=== PATIENT | female | born 1990 | race Caucasian/White ===

== ENCOUNTER 2022-06-01 10:36 | Inpatient (IN) | payer OTHER ==
[2022-06-01 12:04] VITALS: BMI 37.0
[2022-06-01] MEDS ORDERED: BENZOCAINE/MENTHOL (CHLORASEPTIC ) LOZENGE MM PRN (12:11)
[2022-06-01] MEDS ORDERED: MAGNESIUM HYDROX 2400MG/30ML ORAL SUSPENSION 30 ML CUP PO PRN (12:11)
[2022-06-01] MEDS ORDERED: NICOTINE POLACRILEX 4 MG GUM BUC PRN (12:11)
[2022-06-01] MEDS ORDERED: guaiFENesin 600 MG TABLET.ER (FP) PO PRN (12:11)
[2022-06-01] MEDS ORDERED: chlordiazePOXIDE HCL 25 MG CAPSULE PO ONE (12:11)
[2022-06-01] MEDS ORDERED: NALOXONE HCL (KLOXXADO) 8 MG SPRAY NS PRN (12:11)
[2022-06-01] MEDS ORDERED: ACETAMINOPHEN 325 MG TABLET (FP) PO PRN (12:11)
[2022-06-01] MEDS ORDERED: NALOXONE HCL 0.4 MG/ML VIAL IM PRN (12:11)
[2022-06-01] MEDS ORDERED: POLYETHYLENE GLYCOL (HEALTHYLAX) 3350 17 GM PACKET PO PRN (12:11)
[2022-06-01] MEDS ORDERED: LOPERAMIDE HCL 2 MG CAPSULE PO PRN (12:11)
[2022-06-01] MEDS ORDERED: ONDANSETRON *ODT* 4 MG TABLET SL PRN (12:11)
[2022-06-01] MEDS ORDERED: DICYCLOMINE HCL 10 MG CAPSULE PO PRN (12:11)
[2022-06-01] MEDS: GABAPENTIN 300 MG CAPSULE PO SCH ×2 (13:03→22:05)
[2022-06-01] MEDS: PANTOPRAZOLE 20 MG TABLET PO SCH (13:03)
[2022-06-01] MEDS: BISMUTH SUBSALICYLATE 524 MG/30 ML PO PRN (13:13)
[2022-06-01] MEDS: NICOTINE 10 MG CARTRIDGE (INHALER) IH PRN (14:25)
[2022-06-01] MEDS: chlordiazePOXIDE HCL 25 MG CAPSULE PO SCH ×2 (17:01→22:04)
[2022-06-01] MEDS ORDERED: QUEtiapine FUMARATE 200 MG TABLET PO SCH (22:00)
[2022-06-01] MEDS: metFORMIN HCL 500 MG TABLET (FP) PO SCH (22:06)
[2022-06-01] MEDS: MELATONIN 5 MG TABLETS PO SCH (22:07)
[2022-06-01] MEDS: THIAMINE HCL 100 MG TABLET (FP) PO SCH (22:07)
[2022-06-01] MEDS: IBUPROFEN 400 MG TABLET (FP) PO PRN (22:10)
[2022-06-01] MEDS: QUEtiapine FUMARATE 100 MG TABLET (FP) PO SCH (22:43)
[2022-06-02] MEDS: chlordiazePOXIDE HCL 25 MG CAPSULE PO SCH ×4 (05:38→22:13)
[2022-06-02] MEDS: GABAPENTIN 300 MG CAPSULE PO SCH ×3 (05:39→22:12)
[2022-06-02] MEDS: IBUPROFEN 400 MG TABLET (FP) PO PRN (05:47)
[2022-06-02] MEDS ORDERED: methaDONE HCL 10 MG TABLET (FOR DETOX USE ONLY) PO ONE (06:00)
[2022-06-02] MEDS: PRENATAL VITAMINS W/ FOLIC ACID TABLET (FP) PO SCH (10:14)
[2022-06-02] MEDS: metFORMIN HCL 500 MG TABLET (FP) PO SCH ×2 (10:15→22:11)
[2022-06-02] MEDS: PANTOPRAZOLE 20 MG TABLET PO SCH (10:15)
[2022-06-02] MEDS: chlordiazePOXIDE HCL 25 MG CAPSULE PO PRN ×2 (14:18→20:41)
[2022-06-02] MEDS: THIAMINE HCL 100 MG TABLET (FP) PO SCH (22:10)
[2022-06-02] MEDS: MELATONIN 5 MG TABLETS PO SCH (22:11)
[2022-06-02] MEDS: QUEtiapine FUMARATE 100 MG TABLET (FP) PO SCH (22:11)
[2022-06-03] MEDS: chlordiazePOXIDE HCL 25 MG CAPSULE PO SCH ×4 (05:24→22:12)
[2022-06-03] MEDS: GABAPENTIN 300 MG CAPSULE PO SCH ×3 (05:24→22:12)
[2022-06-03] MEDS: IBUPROFEN 400 MG TABLET (FP) PO PRN (05:26)
[2022-06-03] MEDS: metFORMIN HCL 500 MG TABLET (FP) PO SCH ×2 (06:55→17:00)
[2022-06-03] MEDS ORDERED: methaDONE HCL 10 MG TABLET PO SCH (08:30)
[2022-06-03] MEDS: PANTOPRAZOLE 20 MG TABLET PO SCH (10:23)
[2022-06-03] MEDS: PRENATAL VITAMINS W/ FOLIC ACID TABLET (FP) PO SCH (10:23)
[2022-06-03] MEDS: chlordiazePOXIDE HCL 25 MG CAPSULE PO PRN (20:10)
[2022-06-03] MEDS: hydrOXYzine PAMOATE 25 MG CAPSULE (FP) PO PRN (20:11)
[2022-06-03] MEDS: MELATONIN 5 MG TABLETS PO SCH (22:11)
[2022-06-03] MEDS: THIAMINE HCL 100 MG TABLET (FP) PO SCH (22:12)
[2022-06-03] MEDS: QUEtiapine FUMARATE 300 MG TABLET PO SCH (22:12)
[2022-06-04] MEDS: chlordiazePOXIDE HCL 10 MG CAPSULE PO PRN ×2 (02:52→18:19)
[2022-06-04] MEDS: chlordiazePOXIDE HCL 10 MG CAPSULE PO SCH ×4 (05:31→22:11)
[2022-06-04] MEDS: GABAPENTIN 300 MG CAPSULE PO SCH ×3 (05:31→22:11)
[2022-06-04] MEDS: IBUPROFEN 400 MG TABLET (FP) PO PRN ×2 (05:36→22:13)
[2022-06-04] MEDS: metFORMIN HCL 500 MG TABLET (FP) PO SCH ×2 (06:23→17:17)
[2022-06-04] MEDS: PANTOPRAZOLE 20 MG TABLET PO SCH (10:15)
[2022-06-04] MEDS: QUEtiapine FUMARATE 100 MG TABLET (FP) PO SCH (10:15)
[2022-06-04] MEDS: PRENATAL VITAMINS W/ FOLIC ACID TABLET (FP) PO SCH (10:15)
[2022-06-04] MEDS: hydrOXYzine PAMOATE 25 MG CAPSULE (FP) PO PRN (12:14)
[2022-06-04] MEDS: THIAMINE HCL 100 MG TABLET (FP) PO SCH (22:11)
[2022-06-04] MEDS: MELATONIN 5 MG TABLETS PO SCH (22:11)
[2022-06-04] MEDS: QUEtiapine FUMARATE 300 MG TABLET PO SCH (22:11)
[2022-06-05] MEDS: IBUPROFEN 400 MG TABLET (FP) PO PRN (05:50)
[2022-06-05] MEDS: GABAPENTIN 300 MG CAPSULE PO SCH ×3 (05:50→22:44)
[2022-06-05] MEDS: chlordiazePOXIDE HCL 10 MG CAPSULE PO SCH ×2 (05:50→17:08)
[2022-06-05] MEDS: metFORMIN HCL 500 MG TABLET (FP) PO SCH ×2 (06:11→16:48)
[2022-06-05] MEDS: QUEtiapine FUMARATE 100 MG TABLET (FP) PO SCH (10:03)
[2022-06-05] MEDS: hydrOXYzine PAMOATE 25 MG CAPSULE (FP) PO PRN (10:03)
[2022-06-05] MEDS: PRENATAL VITAMINS W/ FOLIC ACID TABLET (FP) PO SCH (10:03)
[2022-06-05] MEDS: PANTOPRAZOLE 20 MG TABLET PO SCH (10:03)
[2022-06-05] MEDS ORDERED: hydrOXYzine PAMOATE 25 MG CAPSULE (FP) PO ONE (14:30)
[2022-06-05] MEDS: METHOCARBAMOL 750 MG TABLET PO SCH ×2 (15:00→22:44)
[2022-06-05] MEDS ORDERED: ALBUTEROL SO4 HFA INHALER IH PRN (15:56)
[2022-06-05] MEDS: MAG HYDROX/AL HYDROX/SIMETH 30 ML UNIT-DOSE CUP PO PRN ×2 (17:08→23:00)
[2022-06-05] MEDS: BISMUTH SUBSALICYLATE 524 MG/30 ML PO PRN (20:34)
[2022-06-05] MEDS: MELATONIN 5 MG TABLETS PO SCH (22:44)
[2022-06-05] MEDS: QUEtiapine FUMARATE 300 MG TABLET PO SCH (22:44)
[2022-06-05] MEDS: THIAMINE HCL 100 MG TABLET (FP) PO SCH (22:44)
[2022-06-05] MEDS: NICOTINE 10 MG CARTRIDGE (INHALER) IH PRN (23:00)
[2022-06-06] MEDS ORDERED: chlordiazePOXIDE HCL 10 MG CAPSULE PO ONE (05:00)
[2022-06-06] MEDS: METHOCARBAMOL 750 MG TABLET PO SCH (05:20)
[2022-06-06] MEDS: GABAPENTIN 300 MG CAPSULE PO SCH (05:20)
[2022-06-06] MEDS: metFORMIN HCL 500 MG TABLET (FP) PO SCH (06:20)
[2022-06-06 06:46] VITALS: PULSE 83
[2022-06-06 08:33] VITALS: BP 103/66; RESP 16; TEMP 97.9
[2022-06-06] MEDS: PRENATAL VITAMINS W/ FOLIC ACID TABLET (FP) PO SCH (09:20)
[2022-06-06] MEDS: QUEtiapine FUMARATE 100 MG TABLET (FP) PO SCH (09:20)
[2022-06-06] MEDS: PANTOPRAZOLE 20 MG TABLET PO SCH (09:20)
== END 2022-06-06 09:50 | disposition home or self-care (01) | DRG 773 ==
LOC: YASAS 10:36 → Y3N 12:22
PROVIDERS: ADMIT Allergy & Immunology; ATTEND Surgery
PROC: HZ2ZZZZ Detoxification Services for Substance Abuse Treatment (ICD-10-PCS; principal; 2022-06-01)
DX: F11.23 Opioid dependence with withdrawal (principal); F10.230 Alcohol dependence with withdrawal, uncomplicated; F14.20 Cocaine dependence, uncomplicated; F13.20 Sedative, hypnotic or anxiolytic dependence, uncomplicated; F17.210 Nicotine dependence, cigarettes, uncomplicated; F31.9 Bipolar disorder, unspecified; F19.24 Other psychoactive substance dependence with psychoactive substance-induced mood disorder; G62.9 Polyneuropathy, unspecified; F43.10 Post-traumatic stress disorder, unspecified; H53.143 Visual discomfort, bilateral; E11.9 Type 2 diabetes mellitus without complications; Z79.84 Long term (current) use of oral hypoglycemic drugs
CPT/HCPCS: 82962; 87811; 93005; 93010; C9803-CS; U0003; U0005

== ENCOUNTER 2023-08-15 08:39 | Inpatient (IN) | payer OTHER ==
[2023-08-15 09:30] VITALS: BMI 36.3
[2023-08-15] MEDS ORDERED: BENZOCAINE/MENTHOL (CHLORASEPTIC ) LOZENGE MM PRN (10:19)
[2023-08-15] MEDS ORDERED: NALOXONE HCL 0.4 MG/ML VIAL IM PRN (10:19)
[2023-08-15] MEDS ORDERED: POLYETHYLENE GLYCOL (HEALTHYLAX) 3350 17 GM PACKET PO PRN (10:19)
[2023-08-15] MEDS ORDERED: NALOXONE (NARCAN) HCL 4 MG/0.1 ML SPRAY NS PRN (10:19)
[2023-08-15] MEDS ORDERED: BENZONATATE 200 MG CAPSULE PO PRN (10:19)
[2023-08-15] MEDS ORDERED: LOPERAMIDE HCL 2 MG CAPSULE PO PRN (10:19)
[2023-08-15] MEDS ORDERED: MAGNESIUM HYDROX 2400MG/30ML ORAL SUSPENSION 30 ML CUP PO PRN (10:19)
[2023-08-15] MEDS ORDERED: MAG HYDROX/AL HYDROX/SIMETH 30 ML UNIT-DOSE CUP PO PRN (10:19)
[2023-08-15] MEDS ORDERED: guaiFENesin 600 MG TABLET.ER (FP) PO PRN (10:19)
[2023-08-15] MEDS ORDERED: methaDONE HCL 10 MG TABLET PO ONE ×2 (10:25→12:05)
[2023-08-15] MEDS ORDERED: chlordiazePOXIDE HCL 25 MG CAPSULE PO SCH (11:00)
[2023-08-15] MEDS ORDERED: PRENATAL VITAMINS W/ FOLIC ACID TABLET (FP) PO ONE (11:49)
[2023-08-15] MEDS: PRENATAL VITAMINS W/ FOLIC ACID TABLET (FP) PO SCH (11:52)
[2023-08-15] MEDS: chlordiazePOXIDE HCL 25 MG CAPSULE PO SCH (13:18)
[2023-08-15] MEDS: ACAMPROSATE CALCIUM 333 MG TABLET.DR PO SCH (13:18)
[2023-08-15] MEDS: ONDANSETRON *ODT* 4 MG TABLET SL PRN (13:22)
[2023-08-15] MEDS: chlordiazePOXIDE HCL 25 MG CAPSULE PO PRN (20:19)
[2023-08-15] MEDS: IBUPROFEN 600 MG TABLET (FP) PO PRN (20:20)
[2023-08-15] MEDS: BUDESONIDE/FORMETEROL FUMARATE 160/4.5 mcg INHALER IH SCH (22:59)
[2023-08-15] MEDS: THIAMINE 100 MG TABLET PO SCH (23:00)
[2023-08-15] MEDS: MELATONIN 5 MG TABLETS PO SCH (23:00)
[2023-08-15] MEDS: QUEtiapine FUMARATE 200 MG TABLET PO SCH (23:00)
[2023-08-15] MEDS: NICOTINE POLACRILEX 4 MG GUM BUC PRN (23:01)
[2023-08-16] MEDS ORDERED: methaDONE HCL 10 MG TABLET PO SCH (06:00)
[2023-08-16] MEDS: ALBUTEROL SO4 HFA INHALER IH PRN (06:50)
[2023-08-16] MEDS: TRIMETHOBENZAMIDE HCL 200MG/2ML INJ IM ONE (12:46)
[2023-08-16] MEDS: METHOCARBAMOL 500 MG TABLET PO PRN (22:12)
[2023-08-16] MEDS: hydrOXYzine PAMOATE 25 MG CAPSULE (FP) PO PRN (22:12)
[2023-08-17] MEDS ORDERED: methaDONE HCL 40 MG DISPERSABLE TABLET PO SCH (06:00)
[2023-08-17] MEDS: DICYCLOMINE HCL 10 MG CAPSULE PO PRN (06:01)
[2023-08-17] MEDS: BISMUTH SUBSALICYLATE 262 MG/15 ML BTL PO PRN (06:01)
[2023-08-17] MEDS: chlordiazePOXIDE HCL 25 MG CAPSULE PO SCH (07:34)
[2023-08-17] MEDS: TRIMETHOBENZAMIDE HCL 200MG/2ML INJ IM PRN (09:31)
[2023-08-17] MEDS: PANTOPRAZOLE 40 MG TABLET PO SCH (11:05)
[2023-08-17] MEDS: LORazepam 2 MG TABLET PO SCH (22:08)
[2023-08-17] MEDS: ERYTHROMYCIN BASE 250 MG TAB PO SCH (22:10)
[2023-08-18] MEDS ORDERED: chlordiazePOXIDE HCL 10 MG CAPSULE PO PRN
[2023-08-18] MEDS ORDERED: chlordiazePOXIDE HCL 10 MG CAPSULE PO SCH (05:00)
[2023-08-18] MEDS: LORazepam 1 MG TABLET PO SCH (05:57)
[2023-08-18] MEDS: SUCRALFATE 1 GM TABLET (FP) PO SCH (07:21)
[2023-08-18] MEDS ORDERED: methaDONE HCL 40 MG DISPERSABLE TABLET PO ONE (08:29)
[2023-08-18 11:48] LABS: HEMATOCRIT 40.4 % (32.4-45.2); HEMOGLOBIN 13.5 GM/dL (10.7-15.3); MCH 29.9 pg (25.7-33.7); MCHC 33.4 g/dl (32.0-36.0); MEAN CELL VOLUME 89.6 fl (80-96); MEAN PLT VOLUME 7.8 fl (7.5-11.1); PLATELET COUNT 227 10^3/uL (134-434); RBC 4.51 M/mm3 (3.60-5.2); RDW 13.9 % (11.6-15.6); WHITE BLOOD COUNT 5.2 K/mm3 (4.0-10.0)
[2023-08-18 11:50] LABS: CHLORIDE 100 mmol/L (98-107); POTASSIUM 3.7 mmol/L (3.5-5.1); SODIUM 136 mmol/L (136-145)
[2023-08-18 11:52] LABS: BLOOD UREA NITROGEN 10.2 mg/dL (7-18); CALCIUM 8.6 mg/dL (8.5-10.1)
[2023-08-18 11:53] LABS: ALBUMIN 3.4 g/dl (3.4-5.0); ANION GAP 5 mmol/L (4-13); CO2 30 mmol/L (21-32); GLUCOSE,RANDOM 99 mg/dL (74-106)
[2023-08-18 11:54] LABS: CREATININE 0.9 mg/dL (0.55-1.3); SGPT/ALT 59 U/L (13-61)
[2023-08-18 11:56] LABS: SGOT/AST 56 U/L (15-37)
[2023-08-18 11:57] LABS: ALK PHOS 115 U/L (45-117); BILIRUBIN,TOTAL 0.5 mg/dL (0.2-1); TOT PROT 7.3 g/dl (6.4-8.2)
[2023-08-18] MEDS: LORazepam 1 MG TABLET PO PRN (14:17)
[2023-08-18] MEDS: ACETAMINOPHEN 325 MG TABLET (FP) PO PRN (17:14)
[2023-08-18] MEDS: IBUPROFEN 400 MG TABLET (FP) PO PRN (21:59)
[2023-08-19] MEDS ORDERED: chlordiazePOXIDE HCL 10 MG CAPSULE PO SCH (05:00)
[2023-08-19] MEDS: LORazepam 0.5 MG TABLET PO SCH (05:37)
[2023-08-19] MEDS ORDERED: methaDONE HCL 10 MG TABLET PO SCH (06:00)
[2023-08-19] MEDS: methaDONE HCL 40 MG DISPERSABLE TABLET PO ONE (09:30)
[2023-08-19] MEDS: LORazepam 0.5 MG TABLET PO PRN (13:34)
[2023-08-19] MEDS: GABAPENTIN 100 MG CAPSULE PO SCH (13:35)
[2023-08-19] MEDS: ACETAMINOPHEN 325 MG TABLET (FP) PO PRN (15:45)
[2023-08-19] MEDS ORDERED: ACETAMINOPHEN 325 MG TABLET (FP) PO PRN (15:46)
[2023-08-20] MEDS ORDERED: chlordiazePOXIDE HCL 10 MG CAPSULE PO ONE (05:00)
[2023-08-20] MEDS: LORazepam 0.5 MG TABLET PO ONE (05:51)
[2023-08-20 07:05] VITALS: BP 132/58; PULSE 79; RESP 16; TEMP 97.8
[2023-08-20] MEDS ORDERED: methaDONE HCL 10 MG TABLET PO ONE (09:00)
== END 2023-08-20 11:02 | disposition home or self-care (01) | DRG 773 ==
LOC: YASAS 08:39 → Y6N 10:39
PROVIDERS: ADMIT Allergy & Immunology; ATTEND Surgery
PROC: HZ2ZZZZ Detoxification Services for Substance Abuse Treatment (ICD-10-PCS; principal; 2023-08-15)
DX: F10.230 Alcohol dependence with withdrawal, uncomplicated (principal); F11.20 Opioid dependence, uncomplicated; F14.20 Cocaine dependence, uncomplicated; F13.20 Sedative, hypnotic or anxiolytic dependence, uncomplicated; F17.210 Nicotine dependence, cigarettes, uncomplicated; F20.9 Schizophrenia, unspecified; F31.9 Bipolar disorder, unspecified; F19.24 Other psychoactive substance dependence with psychoactive substance-induced mood disorder; F41.9 Anxiety disorder, unspecified; H53.143 Visual discomfort, bilateral; K21.9 Gastro-esophageal reflux disease without esophagitis; R73.03 Prediabetes; G62.9 Polyneuropathy, unspecified
CPT/HCPCS: 36415; 80053; 80305; 80307; 81025; 82140; 85027; 86780; 93005; 93010; Q0162

== ENCOUNTER 2024-10-22 11:49 | Inpatient (IN) | payer OTHER ==
[2024-10-22] MEDS ORDERED: POLYETHYLENE GLYCOL (HEALTHYLAX) 3350 17 GM PACKET PO PRN (13:07)
[2024-10-22] MEDS ORDERED: guaiFENesin 600 MG TABLET.ER (FP) PO PRN (13:07)
[2024-10-22] MEDS ORDERED: IBUPROFEN 400 MG TABLET (FP) PO PRN (13:07)
[2024-10-22] MEDS ORDERED: NALOXONE (NARCAN) HCL 4 MG/0.1 ML SPRAY NS PRN (13:07)
[2024-10-22] MEDS ORDERED: MAGNESIUM HYDROX 2400MG/30ML ORAL SUSPENSION 30 ML CUP PO PRN (13:07)
[2024-10-22] MEDS ORDERED: DICYCLOMINE HCL 10 MG CAPSULE PO PRN (13:07)
[2024-10-22] MEDS ORDERED: BENZONATATE 200 MG CAPSULE PO PRN (13:07)
[2024-10-22 13:09] VITALS: BMI 38.4
[2024-10-22] MEDS ORDERED: ALBUTEROL SO4 HFA INHALER IH PRN (13:10)
[2024-10-22] MEDS ORDERED: ACAMPROSATE CALCIUM 333 MG TABLET.DR PO SCH ×2 (14:00→22:00)
[2024-10-22] MEDS ORDERED: ONDANSETRON *ODT* 4 MG TABLET ONE (14:16)
[2024-10-22] MEDS ORDERED: MAG HYDROX/AL HYDROX/SIMETH 30 ML UNIT-DOSE CUP ONE (14:16)
[2024-10-22] MEDS ORDERED: NICOTINE 7 MG/24 HOURS TOPICAL PATCH TD ONE (14:16)
[2024-10-22] MEDS ORDERED: GABAPENTIN 100 MG CAPSULE ONE (14:16)
[2024-10-22] MEDS: PRENATAL VITAMINS W/ FOLIC ACID TABLET (FP) PO SCH (14:19)
[2024-10-22] MEDS: ONDANSETRON *ODT* 4 MG TABLET SL PRN (14:20)
[2024-10-22] MEDS: NICOTINE 7 MG/24 HOURS TOPICAL PATCH TD SCH (14:21)
[2024-10-22] MEDS: GABAPENTIN 100 MG CAPSULE PO SCH (14:24)
[2024-10-22] MEDS: ACAMPROSATE CALCIUM 333 MG TABLET.DR PO SCH (18:04)
[2024-10-22] MEDS: levETIRAcetam 500 MG TABLET (FP) PO SCH (18:04)
[2024-10-22] MEDS: hydrOXYzine PAMOATE 25 MG CAPSULE (FP) PO PRN (18:11)
[2024-10-22] MEDS: BISMUTH SUBSALICYLATE 524 MG/30 ML PO PRN (18:33)
[2024-10-22] MEDS: MAG HYDROX/AL HYDROX/SIMETH 30 ML UNIT-DOSE CUP PO PRN (18:33)
[2024-10-22] MEDS: MELATONIN 5 MG TABLETS PO SCH (22:30)
[2024-10-22] MEDS: THIAMINE 100 MG TABLET PO SCH (22:30)
[2024-10-22] MEDS: BUDESONIDE/FORMETEROL FUMARATE 80/4.5 mcg INHALER IH SCH (22:31)
[2024-10-23] MEDS: METHOCARBAMOL 500 MG TABLET PO PRN (06:23)
[2024-10-23] MEDS: LOPERAMIDE HCL 2 MG CAPSULE PO PRN (08:29)
[2024-10-23 10:27] LABS: GLUCOSE,RANDOM 112.0 mg/dL (74-106); TOT PROT 7.8 g/dl (6.4-8.2)
[2024-10-23 10:28] LABS: CO2 22.0 mmol/L (21-32)
[2024-10-23 10:30] LABS: ALK PHOS 94.0 U/L (40-150)
[2024-10-23 10:32] LABS: SGOT/AST 38.0 U/L (5-34); SGPT/ALT 27.0 U/L (0-55)
[2024-10-23 10:33] LABS: CREATININE 0.94 mg/dL (0.55-1.3)
[2024-10-23 10:34] LABS: MCHC 32.4 g/dl (32.2-35.5); MEAN CELL VOLUME 91.3 fl (79.4-94.8); MEAN PLT VOLUME 10.2 fl (9.4-12.3); RDW 13.0 % (12.1-16.8)
[2024-10-23 14:59] LABS: URINE APPEARANCE CLEAR; URINE BILIRUBIN NEGATIVE (NEGATIVE); URINE COLOR YELLOW; URINE GLUCOSE (UA) NEGATIVE (NEGATIVE); URINE KETONE NEGATIVE (NEGATIVE); URINE LEUK ESTERASE NEGATIVE (NEGATIVE); URINE NITRITE NEGATIVE (NEGATIVE); URINE PROTEIN NEGATIVE (NEGATIVE); URINE UROBILINOGEN 0.2 mg/dL (0.2-1.0)
[2024-10-23] MEDS: IBUPROFEN 600 MG TABLET (FP) PO PRN (15:15)
[2024-10-23] MEDS: ACETAMINOPHEN 325 MG TABLET (FP) PO PRN (17:31)
[2024-10-23] MEDS: hydrOXYzine PAMOATE 25 MG CAPSULE (FP) PO PRN (20:23)
[2024-10-25] MEDS: GABAPENTIN 300 MG CAPSULE PO ONE (13:13)
[2024-10-25] MEDS ORDERED: GABAPENTIN 300 MG CAPSULE PO SCH (13:15)
[2024-10-25] MEDS: metFORMIN HCL 500 MG TABLET (FP) PO SCH (17:25)
[2024-10-25] MEDS: BENZOCAINE/MENTHOL (CHLORASEPTIC ) LOZENGE MM PRN (20:23)
[2024-10-25] MEDS: ACAMPROSATE CALCIUM 333 MG TABLET.DR PO SCH (23:20)
[2024-10-26] MEDS: LEVOTHYROXINE NA 100 MCG TABLET (FP) PO SCH (06:29)
[2024-10-26] MEDS: PANTOPRAZOLE 40 MG TABLET PO SCH (06:29)
[2024-10-26 07:26] VITALS: RESP 16
[2024-10-26 09:10] VITALS: BP 119/72; PULSE 71; TEMP 98.7
[2024-10-26] MEDS: GABAPENTIN 300 MG CAPSULE PO SCH (09:43)
== END 2024-10-26 11:51 | disposition home or self-care (01) | DRG 773 ==
LOC: YASAS 11:49 → Y6N 14:44
PROVIDERS: ADMIT Allergy & Immunology; ATTEND Counselor Addiction (Substance Use Disorder)
PROC: HZ2ZZZZ Detoxification Services for Substance Abuse Treatment (ICD-10-PCS; principal; 2024-10-22)
DX: F10.230 Alcohol dependence with withdrawal, uncomplicated (principal); F11.20 Opioid dependence, uncomplicated; F14.20 Cocaine dependence, uncomplicated; F12.20 Cannabis dependence, uncomplicated; F17.210 Nicotine dependence, cigarettes, uncomplicated; F31.9 Bipolar disorder, unspecified; F20.9 Schizophrenia, unspecified; F43.10 Post-traumatic stress disorder, unspecified; F41.9 Anxiety disorder, unspecified; J45.909 Unspecified asthma, uncomplicated; E11.9 Type 2 diabetes mellitus without complications; R33.9 Retention of urine, unspecified; Z62.810 Personal history of physical and sexual abuse in childhood; Z63.8 Other specified problems related to primary support group; Z91.410 Personal history of adult physical and sexual abuse; Z63.0 Problems in relationship with spouse or partner
CPT/HCPCS: 36415; 80053; 80307; 81003; 82962; 85027; 86780; 93005; 93010; Q0162